=== PATIENT | female | born 1940 | race Caucasian/White ===

== ENCOUNTER 2020-02-24 19:01 | Emergency (ER) | payer OTHER, SELFPAY ==
[2020-02-24 19:39] VITALS: BP 166/64; PULSE 65; RESP 18; TEMP 37.5; O2SAT 97
--- NOTE | 2020-02-24 19:39 | PC.NURSE ---
in br to obtain ua spec.
--- NOTE | 2020-02-24 19:56 | PC.NURSE ---
unable to give ua spec.
--- NOTE | 2020-02-24 19:56 | ED.GENADULT ---
HPI - General Adult General Chief complaint: Urogenital-Female Stated complaint: Possible Uti Time Seen by Provider: 02/24/20 19:56 Source: patient Mode of arrival: ambulatory Limitations: no limitations History of Present Illness HPI narrative: 79-year-old female patient presents to the [facility] with complaints of burning with urination and urinary retention. Patient states she has had issues like this for many years in the past. Patient states she has had the burning with urination symptoms for the past 2 weeks. Patient states that she had called her doctor about 2 weeks ago and described the symptoms and her doctor prescribed her 7-day course of Macrobid. Patient states she took the full course and the symptoms did not go away and again called her doctor and states that the doctor vitreo retinal surgeon requested a urine specimen which she went dropped off at the office and they called her in a 5-day course of Cipro. Patient states that she has had bladder surgery before in the past and does have issues with urinary retention to the point where many of her doctors wanted her to cath herself. Patient states that she drank 2 bottles of water prior to arrival today as well as 2 bottles of water while she is here and she has not been able to produce any urine. Patient denies any fevers, body aches or chills. Denies any abdominal pain, nausea, vomiting or diarrhea. Denies any low back pain. Related Data Home Medications Medication Instructions Recorded Confirmed amlodipine 02/24/20 famotidine 02/24/20 fenofibrate nanocrystallized mg PO 02/24/20 latanoprost 02/24/20 losartan 02/24/20 metformin mg PO 02/24/20 metoprolol succinate PO 02/24/20 rosuvastatin mg 02/24/20 Allergies Allergy/AdvReac Type Severity Reaction Status Date / Time Sulfa (Sulfonamide Allergy Unknown Verified 07/12/14 13:25 Antibiotics) Review of Systems Review of Systems: Narrative: CONSTITUTIONAL: Denies fever, chills, or sweats. EYES: Denies visual changes, redness, or discharge. ENT: Denies rhinorrhea, congestion, sore throat, or otalgia. CARDIOVASCULAR: Denies chest pain, palpitations, or edema. RESPIRATORY: Denies cough or dyspnea. GASTROINTESTINAL: Denies abdominal pain, nausea, vomiting, or diarrhea. GENITOURINARY: Denies dysuria or hematuria. Positive burning pain with urination and urinary retention x2 weeks SKIN: Denies rash or itching. MUSCULOSKELETAL: Denies back pain, joint pain, or myalgia. NEUROLOGIC: Denies headache, numbness, or weakness. PSYCHIATRIC: Denies anxiety or depression. [facility] Past Medical History Medical History (Updated 02/24/20 @ 20:52 by LIBORIO Duarte) Coronary artery disease CABG x5 Hypercholesterolemia Hypertension Type 2 diabetes mellitus Urinary tract infection Surgical History Surgical History (Updated 02/24/20 @ 19:58 by LIBORIO Duarte) H/O: hysterectomy History of bladder surgery Bladder suspension 2006 History of cholecystectomy History of tonsillectomy Family History Family History Father Family history of glaucoma Hypertension Patient's father is Sibling Hypertension Family history of Parkinson's disease Family history of malignant neoplasm of brain Family history of heart disease in male family member before age 55 Patient's brother is Mother Family history of malignant neoplasm of kidney Patient's mother is Other Diabetes mellitus Family history of cardiovascular disease Social History Social History Smoking status: Never smoker Alcohol intake: never Comments At the time of my signature I agree with nursing past medical history, surgical, social, and family history. There is no relevant family history pertinent to the presenting complaint. Exam Narrative: Exam Narrative: GENERA
--- NOTE | 2020-02-24 20:26 | PC.NURSE ---
has been given water while at [facility]. continues to be unable to urinate.
--- NOTE | 2020-02-24 20:45 | PC.NURSE ---
was able to give urine spec.
== END 2020-02-24 20:55 | disposition home or self-care (01) ==
PROVIDERS: Emergency Provider Nurse Practitioner Family
DX: N30.00 Acute cystitis without hematuria (principal); I25.10 Atherosclerotic heart disease of native coronary artery without angina pectoris; Z95.1 Presence of aortocoronary bypass graft; E78.00 Pure hypercholesterolemia, unspecified; I10 Essential (primary) hypertension; E11.9 Type 2 diabetes mellitus without complications; Z79.84 Long term (current) use of oral hypoglycemic drugs
CPT/HCPCS: 81003; 87086; 87088; 99213; G0463